=== PATIENT | male | born 1965 | race Caucasian/White ===

== ENCOUNTER → 2018-05-19 | Outpatient (CLI) | payer BC | LOC: CAT 08:15 | DX: N28.1 Cyst of kidney, acquired (principal); K76.0 Fatty (change of) liver, not elsewhere classified; M47.815 Spondylosis without myelopathy or radiculopathy, thoracolumbar region; J45.909 Unspecified asthma, uncomplicated ==

== ENCOUNTER → 2018-05-29 | Outpatient (CLI) | payer BC | LOC: ULTRA 08:40 | DX: N43.3 Hydrocele, unspecified (principal) ==

== ENCOUNTER → 2019-08-24 | Outpatient (CLI) | payer BC | LOC: RAD 08:46 | DX: J45.40 Moderate persistent asthma, uncomplicated (principal); M47.814 Spondylosis without myelopathy or radiculopathy, thoracic region ==